=== PATIENT | male | born 1945 | race Caucasian/White ===

== ENCOUNTER → 2016-09-28 | Outpatient (CLI) | payer MEDICARE ==
[2016-01-07 10:15] VITALS: BP 103/61
[~2016-09-28] MED LIST: ASPI-482 PO; ATOR20TA58 PO; FURO40TA4 PO; LEVO75TA5 PO; LISI-338 PO; METO25TA4 PO; NAPR500T3 PO; NITR0.4T6 SL; OXYC-323 PO; POTA20TA4 PO; ZOLP5TAB PO
--- NOTE | 2016-09-30 10:28 | CARD ---
APPROVED REPORT EXAM: Two-dimensional and M-mode echocardiogram with Doppler and color Doppler. Other Information Quality : GoodHR: 76bpm Rhythm : NSR INDICATION Cardiac Disease: CAD Aortic stenosis Surgery/Intervention Status/Post Aortic Valve Replacement: Bioprosthetic RISK FACTORS Hypertension Family History Smoking Ex smoker 2D DIMENSIONS RVDd2.4 (2.9-3.5cm)Left Atrium(2D)4.9 (1.6-4.0cm) IVSd1.1 (0.7-1.1cm)Aortic Root(2D)3.1 (2.0-3.7cm) LVDd5.6 (3.9-5.9cm)LVOT Diameter2.2 (1.8-2.4cm) PWd1.3 (0.7-1.1cm)LVDs3.8 (2.5-4.0cm) FS (%) 33.0 %SV93.6 ml LVEF(%)60.9 (>50%) Aortic Valve AoV Peak Shiv.213.6cm/sAoV VTI45.8cm AO Peak GR.18.3mmHgLVOT Peak Shiv.145.2cm/s AO Mean GR.10mmHgAVA (VMAX)2.55cm2 Mitral Valve MV E Lqnpqafu05.0cm/sMV E Peak Gr.5mmHg MV DECEL [id number] A Mdsggcnw481.3cm/s MV E Mean Gr.2mmHgE/A Ratio0.8 MV A Wzbxhppf182xk Pulmonary Valve PV Peak Wkrjkraz965.6cm/s Tricuspid Valve TR P. Quhwjdnk770wp/sTR Peak Gr.24mmHg Pulmonary Vein S1 Gplwqelh10.8cm/sD2 Bravimru20.2cm/s PVa rtcholdn25jmba LEFT VENTRICLE The left ventricle is normal size. There is mild concentric left ventricular hypertrophy. The left ve ntricular systolic function is normal and the ejection fraction is within normal range.The Ejection F raction is 55-60%. There is normal LV segmental wall motion. Transmitral Doppler flow pattern is Grad e I-abnormal relaxation pattern. RIGHT VENTRICLE The right ventricle is normal size. There is normal right ventricular wall thickness. The right ventr icular systolic function is normal. A pacemaker/ICD lead is noted in the right ventricle. ATRIA The left atrium size is normal. The right atrium size is normal. The interatrial septum is intact wit h no evidence for an atrial septal defect or patent foramen ovale as noted on 2-D or Doppler imaging. AORTIC VALVE Doppler and Color Flow revealed mild aortic regurgitation. There is no significant aortic valvular st enosis. There is a bioprosthetic aortic valve prosthesis. Thevalve appears well seated. Bioprosthesis leaflets are thin and move normally and there is mild regurgitation. MITRAL VALVE Mitral annular calcification is mild. The mitral valve leaflets are thickened. There is no evidence o f mitral valve prolapse. There is no mitral valve stenosis. Doppler and Color Flow revealed mild mitr al regurgitation. TRICUSPID VALVE Doppler and Color Flow revealed mild tricuspid regurgitation. The pulmonary artery systolic pressure is estimated at 29 mmHg. There is no pulmonary hypertension. PULMONIC VALVE Doppler and Color Flow revealed no pulmonic valvular regurgitation. There is no pulmonic valvular duy nosis. GREAT VESSELS The aortic root is normal in size. The ascending aorta is normal in size. The IVC is normal in size a nd collapses >50% with inspiration. PERICARDIAL EFFUSION There is no evidence of significant pericardial effusion. Critical Notification Critical Value: No <Conclusion> The left ventricular systolic function is normal and the ejection fraction is within normal range.The Ejection Fraction is 55-60%. There is normal LV segmental wall motion. A pacemaker/ICD lead is noted in the right ventricle. There is a bioprosthetic aortic valve prosthesis. Thevalve appears well seated. Bioprosthesis leaflet s are thin and move normally and there is mild regurgitation.
== END | disposition home or self-care (01) ==
LOC: ECHO 07:36
PROVIDERS: ATTEND Internal Medicine Cardiovascular Disease
DX: I25.10 Atherosclerotic heart disease of native coronary artery without angina pectoris (principal)
CPT/HCPCS: 93306

== ENCOUNTER → 2018-03-01 | Outpatient (CLI) | payer MEDICARE ==
[2016-01-07 10:15] VITALS: BP 103/61
[~2018-03-01] MED LIST changes: +NAPR-514 PO; -NAPR500T3 PO; +NITR0.4T22 SL; -NITR0.4T6 SL; +PERFLUTREN PROTEIN-A MICROSPHR 0.22 MG/ML 3 ML VIAL. IV ONE
[2018-03-01] MEDS: PERFLUTREN PROTEIN-A MICROSPHR 0.22 MG/ML 3 ML VIAL. IV PRN ×2 (09:58→09:59)
--- NOTE | 2018-03-01 10:28 | CARD ---
MR#: [id number] Date of Study: 03/01/2018 Ordering Physician: JAMARCUS SANDERS, Referring Physician: JAMARCUS SANDERS, Tech: JULIANA Zepeda APPROVED REPORT EXAM: Two-dimensional and M-mode echocardiogram with Doppler, color Doppler with contrast. Other Information Quality : AverageHR: 68bpm Technically limited study due to body habitus and CABG. INDICATION cabg Surgery/Intervention Status/Post Aortic Valve Replacement: Bioprosthetic Pacemaker: CABD DIMENSIONS RVDd3.9 (2.9-3.5cm)Left Atrium(2D)4.4 (1.6-4.0cm) IVSd1.9 (0.7-1.1cm)Aortic Root(2D)4.1 (2.0-3.7cm) LVDd4.7 (3.9-5.9cm)LVOT Diameter2.6 (1.8-2.4cm) PWd1.4 (0.7-1.1cm)IVSs1.8 (0.8-1.2cm) LVDs3.3 (2.5-4.0cm)FS (%) 30.7 % PWs2.4 (0.8-1.2cm)SV60.2 ml LVEF(%)58.3 (>50%) M-Mode DIMENSIONS IVSd1.44 (0.7-1.1cm)LVDd6.44 (4.0-5.6cm) PWd1.32 (0.7-1.1cm)IVSs1.76 cm FS (%) 30 %LVDs4.48 (2.0-3.8cm) PWs1.80 cmLVEF(%)57 (>50%) Aortic Valve AoV Peak Shiv.131.2cm/sAoV VTI29.9cm AO Peak GR.6.9mmHgLVOT Peak Shiv.61.4cm/s LVOT VTI 15.49cmAO Mean GR.4mmHg RUPA (VMAX)1.32zw7WFQ (VTI)2.71cm2 Mitral Valve MV E Xygjayfl79.5cm/sMV E Peak Gr.48mmHg MV DECEL [id number] A Jvsnhfkf42.8cm/s MV OMC38ckI/A Ratio0.9 MVA (PHT)3.03cm2 TDI E/Lateral E'10.1E/Medial E'12.5 Pulmonary Valve PV Peak Mlwggdve91.6cm/sPV Peak Grad.3mmHg RVOT VTI17.6cm Tricuspid Valve TR P. Kkfgtiai965ko/sRAP AEOAQRDQ9liNy TR Peak Gr.27eoJlQGLF80aqXh LEFT VENTRICLE The left ventricle is normal size. There is moderate concentric left ventricular hypertrophy. The lef t ventricular systolic function is normal and the ejection fraction is within normal range. EF 55% Th ere is grossly normal LV segmental wall motion. Tissue Doppler imaging reveals mild left ventricular diastolic dysfunction. RIGHT VENTRICLE The right ventricle is normal size. The right ventricular systolic function is normal. There is a pac emaker lead in the right ventricle. ATRIA The left atrium is mildly dilated. The right atrium is mildly dilated. A pacemaker is seen in the rig ht atrium consistent with history. The interatrial septum is intact with no evidence for an atrial se ptal defect or patent foramen ovale as noted on 2-D or Doppler imaging. AORTIC VALVE Doppler and Color Flow revealed trace aortic regurgitation. There is no significant aortic valvular s tenosis. There is no aortic valvular vegetation. There is a bioprosthetic aortic valve prosthesis. Bi oprosthesis leaflets are not well visualized. MITRAL VALVE The mitral valve is mildly thickened. There is no evidence of mitral valve prolapse. There is no mitr al valve stenosis. Doppler and Color-flow revealed trace mitral regurgitation. TRICUSPID VALVE The tricuspid valve leaflets are thickened , but open well. Doppler and Color Flow revealed mild tric uspid regurgitation. The pulmonary artery systolic pressure is estimated at less than 30 mmHg. There is no pulmonary hypertension. There is no tricuspid valve prolapse or vegetation. There is no tricusp id valve stenosis. PULMONIC VALVE The pulmonic valve is not well visualized. Doppler and Color Flow revealed no pulmonic valvular regur gitation. There is no pulmonic valvular stenosis. GREAT VESSELS The aortic root is mildly enlarged. The IVC was not well visualized. PERICARDIAL EFFUSION There is no pleural effusion. There is no evidence of significant pericardial effusion. Critical Notification Critical Value: No <Conclusion> The left ventricular systolic function is normal and the ejection fraction is within normal range. EF 55% There is grossly normal LV segmental wall motion. There is a pacemaker lead in the right ventricle. There is a bioprosthetic aortic valve prosthesis. Bioprosthesis leaflets are not well visualized. There is no significant aortic valvular stenosis. Signed by : Jamarcus Sanders, Electronically Approved : 03/01/2018 10:26:58
== END | disposition home or self-care (01) ==
LOC: ECHO 08:18
PROVIDERS: ATTEND Internal Medicine Cardiovascular Disease
DX: I71.9 Aortic aneurysm of unspecified site, without rupture (principal)
CPT/HCPCS: C8929; Q9956

== ENCOUNTER → 2018-03-09 | Outpatient (CLI) | payer MEDICARE ==
[2016-01-07 10:15] VITALS: BP 103/61
[~2018-03-09] MED LIST changes: -PERFLUTREN PROTEIN-A MICROSPHR 0.22 MG/ML 3 ML VIAL. IV ONE
[2018-03-09] MEDS: IOHEXOL 300 MG/ML 100ML VIAL. IV ONE (07:30)
[2018-03-09 07:40] LABS: CREATININE 1.4 mg/dL (0.7-1.3); GFR 50.1; POTASSIUM 4.3 mmol/L (3.5-5.1)
[2018-03-09 07:43] LABS: CHOLESTEROL/HDL RATIO 3.3
--- NOTE | 2018-03-09 10:37 | RAD ---
CLINICAL HISTORY: HX OF AORTIC ANEURYSM COMPARISON: 10/12/2015 TECHNIQUE: CT angiogram aorta of the chest following the administration of intravenous contrast. Axial, coronal and sagittal reformatted images were generated. ---PQRS compliance statement - One or more of the following individualized dose reduction techniques were utilized for this study: 1. Automated exposure control 2. Adjustment of the mA and/or kV according to patient size 3. Use of iterative reconstruction technique--- FINDINGS: CHEST: CT angiogram: Thoracic and visualized abdominal aorta is normal in caliber with no aneurysm or dissection. Changes of aortic valvular replacement are seen. At the level of the aortic root, the aorta measures approximately 4.2 cm in diameter. Changes of ascending aortic graft are seen. Ascending aorta: 3.2 cm (series 3 image 58) previously 5.6 cm Aortic arch: 2.7 cm (series 3 image 42) previously 2.8 cm. Descending aorta at the level of the left pulmonary artery: 2.7 cm (series 3 image 56) previously also 2.7 cm. Abdominal aorta: Stable at 2.6 cm just beyond the diaphragm Three-vessel aortic arch, widely patent. Origins of the vertebral arteries are patent although mildly tortuous course of the left vertebral artery. CT chest: Heart is top normal in size. No pericardial effusion. Left chest cardiac generator pack is partially profiled. No mediastinal or hilar lymphadenopathy. No axillary lymphadenopathy. Dependent opacities bilaterally likely atelectasis or scarring. No lobar consolidation. No suspicious lung nodule or mass is identified. Mild emphysematous changes are seen bilaterally. No pleural effusion or pneumothorax. Visualized Upper abdomen: Dependent opacities within the gallbladder likely layering gallstones. Upper abdomen is otherwise unremarkable. Bones: Multilevel degenerative changes of the spine are seen. No definite aggressive osseous lesion. IMPRESSION: Postoperative changes of aortic graft, now with normal appearance of the ascending aorta. Electronically signed by: Chriss Cronin MD (03/09/2018 10:34 AM) [id number]
== END | disposition home or self-care (01) ==
LOC: CT 07:16
PROVIDERS: ATTEND Internal Medicine Cardiovascular Disease
DX: I71.9 Aortic aneurysm of unspecified site, without rupture (principal); I10 Essential (primary) hypertension; E11.9 Type 2 diabetes mellitus without complications; E78.5 Hyperlipidemia, unspecified; E78.00 Pure hypercholesterolemia, unspecified; E87.5 Hyperkalemia; E03.9 Hypothyroidism, unspecified; Z98.890 Other specified postprocedural states; Z86.79 Personal history of other diseases of the circulatory system; Z95.810 Presence of automatic (implantable) cardiac defibrillator; Z87.891 Personal history of nicotine dependence; Z82.49 Family history of ischemic heart disease and other diseases of the circulatory system; Z86.2 Personal history of diseases of the blood and blood-forming organs and certain disorders involving the immune mechanism
CPT/HCPCS: 36415; 71275; 80048; 80061; Q9967

== ENCOUNTER → 2019-10-04 | Outpatient (CLI) | payer MEDICARE ==
[2016-01-07 10:15] VITALS: BP 103/61
[~2019-10-04] MED LIST changes: -OXYC-323 PO; +OXYC1TAB15 PO
--- NOTE | 2019-10-04 12:59 | CARD ---
MR#: [id number] Date of Study: 10/04/2019 Ordering Physician: JAMARCUS SANDERS, Referring Physician: JAMARCUS SANDERS, Tech: Lore Villasenor RDCS APPROVED REPORT EXAM: Two-dimensional and M-mode echocardiogram with Doppler and color Doppler. Other Information Quality : Fair INDICATION Aortic Aneurysm Surgery/Intervention Status/Post Aortic Valve Replacement: Bioprosthetic Type: Bovine Date: 2015 ICD/Pacemaker: Date: 2015 Aortic Aneurysm: Date: 2015 Thoracic CABG: Date: 2015 2D DIMENSIONS RVDd3.4 (2.9-3.5cm)Left Atrium(2D)4.6 (1.6-4.0cm) IVSd1.3 (0.7-1.1cm)Aortic Root(2D)2.8 (2.0-3.7cm) LVDd5.1 (3.9-5.9cm)LVOT Diameter2.1 (1.8-2.4cm) PWd1.2 (0.7-1.1cm)LVDs3.0 (2.5-4.0cm) FS (%) 30.0 %SV89.3 ml LVEF(%)60.0 (>50%) Aortic Valve AoV Peak Shiv.164.4cm/sAoV VTI32.1cm AO Peak GR.10.8mmHgLVOT Peak Shiv.87.3cm/s LVOT VTI 19.50cmAO Mean GR.6mmHg RUPA (VMAX)1.29ms9YOX (VTI)2.07cm2 Mitral Valve MV E Smzvcvam81.7cm/sMV DECEL [id number] MV A Qfbbbfpg214.0cm/sMV PZS64hx E/A Ratio0.7MVA (PHT)3.02cm2 TDI E/Lateral E'11.6E/Medial E'13.4 Tricuspid Valve TR P. Obefnzya180he/sRAP EHGELWAK0tmQe TR Peak Gr.30agOsKTDL02erFc Pulmonary Vein S1 Qwfuvxco45.6cm/sD2 Zqrocnpz55.9cm/s LEFT VENTRICLE The left ventricle is normal size. There is mild concentric left ventricular hypertrophy. The left ve ntricular systolic function is normal and the ejection fraction is within normal range. The Ejection Fraction is 55-60%. There is normal LV segmental wall motion. Transmitral Doppler flow pattern is Gra de I-abnormal relaxation pattern. RIGHT VENTRICLE The right ventricle is normal size. The right ventricular systolic function is normal. There is a pac emaker lead in the right ventricle. ATRIA The left atrium is mildly dilated. The right atrium is mildly dilated. A pacemaker is seen in the rig ht atrium consistent with history. The interatrial septum is intact with no evidence for an atrial se ptal defect or patent foramen ovale as noted on 2-D or Doppler imaging. AORTIC VALVE Doppler and Color Flow revealed no significant aortic regurgitation. Calculated aortic valve area is 2.14 cm2 with maximum pressure gradient of 12 mmHg and mean pressure gradient of 7 mmHg. There is a b ioprosthetic Bovine aortic valve prosthesis. Bioprosthesis leaflets are not well visualized. MITRAL VALVE The mitral valve is calcified but opens well. Mitral annular calcification is mild. There is no evid ence of mitral valve prolapse. There is no mitral valve stenosis. Doppler and Color-flow revealed tra ce mitral regurgitation. TRICUSPID VALVE The tricuspid valve is normal in structure and function. Doppler and Color Flow revealed mild tricusp id regurgitation. There is mild pulmonary hypertension. The PA pressure was estimated at 31 mmHg. The re is no tricuspid valve stenosis. PULMONIC VALVE The pulmonic valve is not well visualized. Doppler and Color Flow revealed no pulmonic valvular regur gitation. There is no pulmonic valvular stenosis. GREAT VESSELS The aortic root is normal in size. The ascending aorta is mildly dilated at 3.5 cm. The IVC is normal in size and collapses >50% with inspiration. PERICARDIAL EFFUSION There is no evidence of significant pericardial effusion. Critical Notification Critical Value: No <Conclusion> The left ventricular systolic function is normal and the ejection fraction is within normal range. Th e Ejection Fraction is 55-60%. There is normal LV segmental wall motion. There is a pacemaker lead in the right ventricle. There is a bioprosthetic Bovine aortic valve prosthesis. Bioprosthesis leaflets are not well visualiz ed. Calculated aortic valve area is 2.14 cm2 with maximum pressure gradient of 12 mmHg and mean pressure gradient of 7 mmHg. The ascending aorta is mildly dilated at 3.5 cm. Signed by : Jamarcus Katrapati, Electronically Approved : 10/04/2019 12:59:06
== END | disposition home or self-care (01) ==
LOC: ECHO 07:42
PROVIDERS: ATTEND Internal Medicine Cardiovascular Disease
DX: I08.1 Rheumatic disorders of both mitral and tricuspid valves (principal); I77.810 Thoracic aortic ectasia; I27.20 Pulmonary hypertension, unspecified; Z95.4 Presence of other heart-valve replacement; Z95.810 Presence of automatic (implantable) cardiac defibrillator
CPT/HCPCS: 93306

== ENCOUNTER 2020-03-11 20:59 | Emergency (ER) | payer MEDICARE ==
[~2020-03-11] VITALS: Ht 188 cm; Wt 122.7 kg
--- NOTE | 2020-03-11 23:57 | PHYS DOC ---
Past Medical History Past Medical History: CAD, High Cholesterol, Heart Disease, Hypertension Additional Past Medical Histor: BYPASS X 4 (WALEIDANIA M NURSE EXAMINER) Past Surgical History: Other Additional Past Surgical Histo: HEART BYPASS X 4. AORTIC ANERYSM (JAIME ECHEVARRIAAlejandra Prakash NURSE EXAMINER) Smoking Status: Never Smoker Alcohol Use: Occasionally (WALEIDANIA M NURSE EXAMINER) General Adult EDM: Chief Complaint: HIP PAIN HPI: HPI: Patient is a 74 year old male who presents with patient states he has had left lower back pain that is sharp and shooting and goes down his buttock and into his left upper leg. He states he does have some tingling in that anterior thigh. He denies any numbness. States he has been to the chiropractor x2 without relief. He states that his primary care doctor put him on prednisone and ibuprofen and is not helping. Patient has tenderness with palpation to the left lower back. There is no bruising denies any injury. He is able to put full pressure and stand on both extremities fully. He is able to sit and bend at all joints fully. No joint deformity. No joint swelling or redness. Patient is ambulatory with a slow steady gait. No unilateral extremity swelling. Patient rates his pain a 10 out of 10. He states that he is unable to lay flat because the pain is too great. Patient has a history of hypertension, high cholesterol, heart disease, bypass x4, aortic aneurysm and a defibrillator placement. (JAIME ECHEVARRIAAlejandra Prakash NURSE EXAMINER) Review of Systems: Review of Systems: Constitutional: Denies fever or chills. [] Eyes: Denies change in visual acuity. [] HENT: Denies nasal congestion or sore throat. [] Respiratory: Denies cough or shortness of breath. [] Cardiovascular: Denies chest pain or edema. [] GI: Denies abdominal pain, nausea, vomiting, bloody stools or diarrhea. [] : Denies dysuria. [] Musculoskeletal: Left low back back pain sharp shooting into left hip joint and down left upper leg. [] Integument: Denies rash. [] Neurologic: Denies headache, focal weakness or sensory changes. Tingling to anterior thigh. [] Endocrine: Denies polyuria or polydipsia. [] Lymphatic: Denies swollen glands. [] Psychiatric: Denies depression or anxiety. [] (IDANIA ECHEVARRIA APRN) Heart Score: Risk Factors: Risk Factors: DM, Current or recent (<one month) smoker, HTN, HLP, family history of CAD, obesity. Risk Scores: Score 0 - 3: 2.5% MACE over next 6 weeks - Discharge Home Score 4 - 6: 20.3% MACE over next 6 weeks - Admit for Clinical Observation Score 7 - 10: 72.7% MACE over next 6 weeks - Early Invasive Strategies (IDANIA ECHEVARRIA APRN) Current Medications: Current Medications Medications (Trade) Dose Ordered Sig/Geraldo Start Time Stop Time Status Last Admin Dose Admin Fentanyl Citrate (Fentanyl 2ml Vial) 50 mcg 1X ONCE 03/12/20 00:00 03/12/20 00:01 UNV Orphenadrine Citrate (Norflex) 60 mg 1X ONCE 03/12/20 00:00 03/12/20 00:01 UNV (IDANIA ECHEVARRIA APRN) Allergies: Allergies: Allergies Coded Allergies Type Severity Reaction Last Updated Verified amiodarone Adverse Reaction Intermediate V TACH 01/06/16 Yes morphine Adverse Reaction Intermediate dropped heart rate 01/06/16 Yes (IDANIA ECHEVARRIA APRN) Physical Exam: PE: Constitutional: Well developed, well nourished, no acute distress, non-toxic appearance. [] HENT: Normocephalic, atraumatic, bilateral external ears normal, oropharynx moist, no oral exudates, nose normal. [] Eyes: PERRLA, EOMI, conjunctiva normal, no discharge. [] Neck: Normal range of motion, no tenderness, supple, no stridor. [] Cardiovascular:Heart rate regular rhythm, no murmur [] Lungs & Thorax: Bilateral breath sounds clear to auscultation [] Abdomen: Bowel sounds normal, soft, no tenderness, no masses, no pulsatile masses. [] Skin: Warm, dry, no erythema, no rash. [] Back: Left low back tenderness, no CVA tenderness. [] Extremities: No tenderness, no cyanosis, no clubbing, ROM intact, no edema. [] Neurologic: Alert and oriented X 3, normal motor function, normal sensory function, no focal deficits noted. [] Psychologic: Affect normal, judgement normal, mood normal. [] (IDANIA ECHEVARRIA APRN) Current Patient Data: Vital Signs: Vital Signs Date Time Temp Pulse Resp B/P (MAP) Pulse Ox O2 Delivery O2 Flow Rate FiO2 03/11/20 22:33 97.7 87 18 149/80 (103) Room Air 95.0 97.7 (IDANIA ECHEVARRIA APRN) EKG: EKG: [] (IDANIA ECHEVARRIA APRN) Radiology/Procedures: Radiology/Procedures: [] Impression: [facility] [address] [place] [address] IMAGING REPORT Signed PATIENT: SUNG LEECCOUNT: [id number] : 1945 LOCATION: ER AGE: 74 SEX: M EXAM STATUS: REG ER ORD. PHYSICIAN: IDANIA ECHEVARRIA APRN REASON: SEVERE LOW BACK PAIN S/P CHIROPRACTIC VISIT PROCEDURE: CT LUMBAR SPINE WO CONTRAST STUDY: 1. CT lumbar spine without contrast 2. CT pelvis without contrast INDICATION: Severe low back pain. Left hip pain. Unable to bear weight. COMPARISON: 10/03/2015 TECHNIQUE: CT imaging was performed of the lumbar spine and pelvis without the use of contrast. Coronal and sagittal reformats were obtained. One or more of the following individualized dose reduction techniques were utilized for this examination: 1. Automated exposure control 2. Adjustment of the mA and/or kV according to patient size 3. Use of iterative reconstruction technique. FINDINGS: Lumbar spine: Vertebral body height and alignment is maintained. Bulky flowing as well as discontinuous paravertebral osteophytes. Disc space narrowing at L5-S1 which is relatively mild and disc mineralization. Straightening of lumbar lordosis. No acute fracture or aggressive process seen to involve the posterior elements. Scattered facet degeneration. Central canal stenosis is greatest at L3-L4 appearing mild noting limited assessment by noncontrast CT technique. No severe osseous encroachment on the neural foramina. Infrarenal aortic aneurysm extending to the bifurcation measuring up to 4.5 cm in transverse dimension. In 2016 transverse dimension measured up to 3.8 cm Aneurysmal dilatation of the left common iliac artery measuring 2.3 cm transverse. Mild aneurysmal dilatation of the right common iliac artery measuring 2.1 cm transverse. Luminal dimensions of the common iliac arteries have slightly increased from 2016 as well. Pelvis: No CT evidence for a sacral insufficiency fracture. No displaced fracture seen at either hip. Hip alignment is maintained. Arthrosis of both hips but slightly greater on the right. No evidence for large hip joint effusion. No soft tissue inflammatory changes that would suggest acute musculotendinous injury. Prostatomegaly and hypertrophy of the median lobe. IMPRESSION: Lumbar spine: 1. No acute fracture or traumatic malalignment. 2. Scattered degenerative/chronic findings with central canal stenosis greatest at L3-L4 but appearing mild to moderate. No severe osseous encroachment on the neural foramina. 3. Infrarenal abdominal aortic aneurysm with a maximum luminal dimension of 4.5 cm. This compares to 3.8 cm in 2016. Mild aneurysmal dilatation of the left more so than right common iliac arteries slightly increased in size from 2016. Pelvis: 1. No acute fracture seen at either hip. No evidence for a sacral sufficiency fracture. No CT manifestations of acute soft tissue injury. 2. Prostatomegaly. Electronically signed by: BLAYNE LOBATO MD (03/12/2020 1:04 AM) [id number] DICTATED and SIGNED BY: BLAYNE LOBATO MD DATE: 03/12/20103 (IDANIA ECHEVARRIA APRN) Radiology/Procedures: [facility] [address] [place] [address] IMAGING REPORT Signed [facility]: [id number] : 1945 LOCATION: ER AGE: 74 SEX: M EXAM STATUS: REG ER ORD. PHYSICIAN: IADNIA ECHEVARRIA APRN REASON: SEVERE LOW BACK PAIN S/P CHIROPRACTIC VISIT PROCEDURE: CT LUMBAR SPINE WO CONTRAST STUDY: 1. CT lumbar spine without contrast 2. CT pelvis without contrast INDICATION: Severe low back pain. Left hip pain. Unable to bear weight. COMPARISON: 10/03/2015 TECHNIQUE: CT imaging was performed of the lumbar spine and pelvis without the use of contrast. Coronal and sagittal reformats were obtained. One or more of the following individualized dose reduction techniques were utilized for this examination: 1. Automated exposure control 2. Adjustment of the mA and/or kV according to patient size 3. Use of iterative reconstruction technique. FINDINGS: Lumbar spine: Vertebral body height and alignment is maintained. Bulky flowing as well as discontinuous paravertebral osteophytes. Disc space narrowing at L5-S1 which is relatively mild and disc mineralization. Straightening of lumbar lordosis. No acute fracture or aggressive process seen to involve the posterior elements. Scattered facet degeneration. Central canal stenosis is greatest at L3-L4 appearing mild noting limited assessment by noncontrast CT technique. No severe osseous encroachment on the neural foramina. Infrarenal aortic aneurysm extending to the bifurcation measuring up to 4.5 cm in transverse dimension. In 2016 transverse dimension measured up to 3.8 cm Aneurysmal dilatation of the left common iliac artery measuring 2.3 cm transverse. Mild aneurysmal dilatation of the right common iliac artery measuring 2.1 cm transverse. Luminal dimensions of the common iliac arteries have slightly increased from 2016 as well. Pelvis: No CT evidence for a sacral insufficiency fracture. No displaced fracture seen at either hip. Hip alignment is maintained. Arthrosis of both hips but slightly greater on the right. No evidence for large hip joint effusion. No soft tissue inflammatory changes that would suggest acute musculotendinous injury. Prostatomegaly and hypertrophy of the median lobe. IMPRESSION: Lumbar spine: 1. No acute fracture or traumatic malalignment. 2. Scattered degenerative/chronic findings with central canal stenosis greatest at L3-L4 but appearing mild to moderate. No severe osseous encroachment on the neural foramina. 3. Infrarenal abdominal aortic aneurysm with a maximum luminal dimension of 4.5 cm. This compares to 3.8 cm in 2016. Mild aneurysmal dilatation of the left more so than right common iliac arteries slightly increased in size from 2016. Pelvis: 1. No acute fracture seen at either hip. No evidence for a sacral sufficiency fracture. No CT manifestations of acute soft tissue injury. 2. Prostatomegaly. Electronically signed by: BLAYNE LOBATO MD (03/12/2020 1:04 AM) [id number] DICTATED and SIGNED BY: BLAYNE LOBATO MD DATE: 03/12/20 0104 (NASIR CLARKE DO) Course & Med Decision Making: Course & Med Decision Making Pertinent Labs and Imaging studies reviewed. (See chart for details) See HPI. Pedal pulse strong and present. Skin pink warm and dry. No saddle paresthesia. Patient denies numbness or tingling, coolness of extremity, loss of bowel bladder, saddle paresthesia, chest pain, shortness of air, fever, dysuria, abdominal pain, nausea, vomiting, diarrhea. Patient has an incidental finding of an increased aortic aneurysm to 4.5. It has increased from 2016. Patient is educated that he needs to follow-up with his shoe cementer immediately. Me and Dr. Clarke have both spoken to the patient concerning this. CT lumbar spine shows stenosis and arthritis. Patient will be given pain medication he is to follow-up with his primary care physician. [] (IDANIA ECHEVARRIA APRN) Dragon Disclaimer: Dragon Disclaimer: This electronic medical record was generated, in whole or in part, using a voice recognition dictation system. (IDANIA ECHEVARRIA APRN) Dragsue Disclaimer: 0115 patient seen by me and examined. CT scan lumbar and pelvic was stable from a musculoskeletal standpoint. There is grossly degenerative changes to his lumbar spine but no significant disc protrusion, fracture or dislocation. However he has an incidental finding of a 4.5 cm abdominal aortic aneurysm. This has increased in size from 2016 when it was 3.8 cm. Patient will call and see his Greeting Card Maker right away regarding this finding. This aneurysm has previously been documented in his chart. I feel that this is incidental to his current findings. No indication of rupture etc. at this time (NASIR CLARKE DO) Departure Departure Impression: Primary Impression: Back pain Qualified Codes: M54.42 - Lumbago with sciatica, left side Additional Impressions: Sciatica Qualified Codes: M54.30 - Sciatica, unspecified side Abdominal aortic aneurysm (AAA) 3.0 cm to 5.5 cm in diameter in male Disposition: 01 HOME, SELF-CARE Condition: STABLE Referrals: ADONIS ROBERTS MD (PCP) JAMARCUS SANDERS MD Patient Instructions: Abdominal Aortic Aneurysm, Back Pain, Adult, Lhu[place]-en-Ypoy, Sciatica with Rehab-SportsMed Additional Instructions: Follow-up with your primary care physician soon as possible. Continue taking all your medications as prescribed. Follow-up with your shoe cementer concerning the aortic aneurysm. Scripts Hydrocodone/Apap 5-325 (NORCO 5-325 TABLET) 1 Each Tablet 1 TAB PO PRN Q6HRS PRN for PAIN, #8 TAB 0 Refills Prov: IDANIA ECHEVARRIA APRN 03/12/20 Justicifation of Admission Dx: Justifications for Admission: Justification of Admission Dx: N/A (IDANIA ECHEVARRIA APRN) Justification of Admission Dx: N/A (NASIR CLARKE DO) IDANIA ECHEVARRIA APRN Mar 11, 2020 23:57 NASIR CLARKE DO Mar 12, 2020 01:10
[2020-03-12] MEDS ORDERED: fentaNYL PF VIAL 100 MCG/2 ML VIAL IVP ONE (00:30)
[2020-03-12] MEDS ORDERED: ORPHENADRINE CITRATE 60 MG/2 ML VIAL. IM ONE (00:30)
[2020-03-12 00:48] LABS: BASO % 0 % (0-3); EOS % 0 % (0-3); HEMATOCRIT 45.3 % (39.0-53.0); HEMOGLOBIN 15.5 g/dL (13.0-17.5); LYMPH # 0.6 x10^3/uL (1.0-4.8); LYMPH % 6 % (24-48); MEAN CORPUSCULAR HEMOGLOBIN 30 pg (25-35); MEAN CORPUSCULAR HGB CONC 34 g/dL (31-37); MEAN CORPUSCULAR VOLUME 87 fL (79-100); MONO # 1.2 x10^3/uL (0.0-1.1); MONO % 11 % (0-9); NEUT % 83 % (31-73); PLATELET COUNT 230 x10^3/uL (140-400); RED CELL DISTRIBUTION WIDTH 14.8 % (11.5-14.5); WHITE BLOOD COUNT 10.9 x10^3/uL (4.0-11.0)
[2020-03-12 01:03] VITALS: BP 123/76
[2020-03-12 01:05] LABS: CREATININE 1.5 mg/dL (0.7-1.3); POTASSIUM 4.1 mmol/L (3.5-5.1)
--- NOTE | 2020-03-12 01:07 | RAD ---
STUDY: 1. CT lumbar spine without contrast 2. CT pelvis without contrast INDICATION: Severe low back pain. Left hip pain. Unable to bear weight. COMPARISON: 10/03/2015 TECHNIQUE: CT imaging was performed of the lumbar spine and pelvis without the use of contrast. Coronal and sagittal reformats were obtained. One or more of the following individualized dose reduction techniques were utilized for this examination: 1. Automated exposure control 2. Adjustment of the mA and/or kV according to patient size 3. Use of iterative reconstruction technique. FINDINGS: Lumbar spine: Vertebral body height and alignment is maintained. Bulky flowing as well as discontinuous paravertebral osteophytes. Disc space narrowing at L5-S1 which is relatively mild and disc mineralization. Straightening of lumbar lordosis. No acute fracture or aggressive process seen to involve the posterior elements. Scattered facet degeneration. Central canal stenosis is greatest at L3-L4 appearing mild noting limited assessment by noncontrast CT technique. No severe osseous encroachment on the neural foramina. Infrarenal aortic aneurysm extending to the bifurcation measuring up to 4.5 cm in transverse dimension. In 2016 transverse dimension measured up to 3.8 cm Aneurysmal dilatation of the left common iliac artery measuring 2.3 cm transverse. Mild aneurysmal dilatation of the right common iliac artery measuring 2.1 cm transverse. Luminal dimensions of the common iliac arteries have slightly increased from 2016 as well. Pelvis: No CT evidence for a sacral insufficiency fracture. No displaced fracture seen at either hip. Hip alignment is maintained. Arthrosis of both hips but slightly greater on the right. No evidence for large hip joint effusion. No soft tissue inflammatory changes that would suggest acute musculotendinous injury. Prostatomegaly and hypertrophy of the median lobe. IMPRESSION: Lumbar spine: 1. No acute fracture or traumatic malalignment. 2. Scattered degenerative/chronic findings with central canal stenosis greatest at L3-L4 but appearing mild to moderate. No severe osseous encroachment on the neural foramina. 3. Infrarenal abdominal aortic aneurysm with a maximum luminal dimension of 4.5 cm. This compares to 3.8 cm in 2016. Mild aneurysmal dilatation of the left more so than right common iliac arteries slightly increased in size from 2016. Pelvis: 1. No acute fracture seen at either hip. No evidence for a sacral sufficiency fracture. No CT manifestations of acute soft tissue injury. 2. Prostatomegaly. Electronically signed by: BLAYNE LOBATO MD (03/12/2020 1:04 AM) [id number]
[2020-03-12 01:10] LABS: ALBUMIN 4.2 g/dL (3.4-5.0); TOTAL BILIRUBIN 0.7 mg/dL (0.2-1.0); TOTAL PROTEIN 8.4 g/dL (6.4-8.2)
[2020-03-12] MEDS ORDERED: HYDR-3164 PO (01:19)
== END 2020-03-12 02:00 | disposition home or self-care (01) ==
LOC: ER 20:59
DX: M54.42 Lumbago with sciatica, left side (principal); I71.4 Abdominal aortic aneurysm, without rupture; I11.9 Hypertensive heart disease without heart failure; N40.0 Benign prostatic hyperplasia without lower urinary tract symptoms; I10 Essential (primary) hypertension; E78.00 Pure hypercholesterolemia, unspecified; I25.10 Atherosclerotic heart disease of native coronary artery without angina pectoris; Z95.1 Presence of aortocoronary bypass graft; Z95.810 Presence of automatic (implantable) cardiac defibrillator; Z88.5 Allergy status to narcotic agent; Z88.8 Allergy status to other drugs, medicaments and biological substances
CPT/HCPCS: 36415; 72131; 72192; 80053; 85025; 96372; 96374; 99285; J2360; J3010

== ENCOUNTER → 2020-03-19 | Outpatient (CLI) | payer MEDICARE ==
[2020-03-12 01:03] VITALS: BP 123/76
[~2020-03-19] MED LIST changes: +CONTRAST GIVEN. MC PRN; +HYDR-3164 PO; +IOHEXOL 350 MG/ML 100 ML VIAL. IV ONE
--- NOTE | 2020-03-19 13:23 | RAD ---
EXAM: CT Chest, Abdomen, and Pelvis with and without IV contrast INDICATION: Reason: AORTIC ANEURYSM / Spl. Instructions: omni 350 80ml / History: TECHNIQUE: Multi-detector row CT images were acquired from the thoracic inlet through the ischial tuberosities with and without the use of IV contrast. Arterial phase images were acquired postcontrast and 3-D views RT images were made of the thoracic and abdominal aorta. Sagittal and coronal images were acquired from the transaxial data. All CT scans performed at this facility utilize dose optimization techniques as appropriate to the exam, including the following: Automated exposure control and adjustment of the mA and/or KV according to patient size (this includes techniques or standardized protocols for targeted exams where dose is indication/reason for exam). IV CONTRAST: Administered ORAL CONTRAST: Not administered COMPARISON: CT angiogram chest of 03/09/2018, CT abdomen and pelvis without IV contrast 10/03/2015 FINDINGS: CHEST: CARDIOVASCULAR: Redemonstrated are surgical changes from an ascending aortic aneurysm repair, along with aortic valve replacement. The aortic root measures 4.3 cm (image 55 of series 4). Ascending thoracic aorta measures 3.7 cm (image 40 of series 4). Three-vessel arch measures 3.0 cm (image 27 of series 4). Proximal descending thoracic aorta measures 3.2 cm (image 30 series 4) Mid descending thoracic aorta measures 3.3 cm (image 55 of series 4) Distal descending thoracic aorta measures 3.0 cm (image 85 of series 4) Visualized pulmonary arteries are unremarkable. Mildly hypertrophic bronchial arteries are better appreciated on this exam compared with the prior study. Slight motion artifact degrades detail but there are surgical changes suggesting a COBB to LAD CABG. Normal heart size without pericardial effusion. Left chest dual-chamber AICD MEDIASTINUM & LEVON: No mass or adenopathy. No fluid collection. LUNGS: Apical predominant mild centrilobular emphysema. No lung nodules , masses or consolidation noted. PLEURAL SPACE: No pleural effusions or pneumothorax. OSSEOUS & SOFT TISSUE: Unremarkable ABDOMEN/PELVIS: LIVER: Unremarkable BILIARY SYSTEM: Gallbladder contains multiple small layering calcifications. No wall thickening or pericholecystic soft tissue stranding. Bile ducts are not dilated. PANCREAS: Unremarkable SPLEEN: Unremarkable ADRENALS: Unremarkable KIDNEYS & URETERS: Bilateral renal cortical undulation suggesting mild scarring in cortical thinning is present. No abnormal enhancement, radiopaque stones or hydronephrosis. No solid renal masses. BLADDER: Mild diffuse urinary bladder wall thickening. REPRODUCTIVE ORGANS: Enlarged prostate measuring 6.4 cm in diameter. GASTROINTESTINAL: The stomach, small bowel, and colon are unremarkable. The appendix is normal. MESENTERY/PERITONEUM/RETROPERITONEUM: Unremarkable VASCULAR: Abdominal aortic infrarenal aneurysm measuring 4.5 x 4.5 cm AP by transverse (image 130 of series 4) is present. This represents an increase in size from 3.8 x 3.6 cm at the comparable level in 2016 (image 53 of series 3 that exam). Patent celiac axis, SMA, JESSICA, and single bilateral renal arteries. Normal variation of the right renal artery arising adjacent to the SMA origin. Aneurysm measures 8.6 cm long and extends to the origin of the common iliac artery origins. Right common iliac artery measures 1.9 cm. Right external iliac artery measures 1.3 cm. Right common femoral artery measures 1.1 cm. Left common iliac artery measures 2.2 cm. Left external iliac artery measures 1.2 cm. Left common femoral artery measures 1.1 cm. LYMPH NODES: No adenopathy OSSEOUS & SOFT TISSUES: Unremarkable IMPRESSION: 1. Stable appearance to repair an ascending thoracic aortic aneurysm and aortic valve repair with no evidence of recurrent aneurysm or aortic dissection. Thoracic aorta now normal in caliber. 2. Infrarenal abdominal aortic aneurysm now measuring 4.5 x 4.5 cm, representing an increase from 3.8 x 3.6 cm slightly over 4 years ago. No evidence of leak or rupture. Electronically signed by: Conrado Roberts MD (03/19/2020 1:20 PM) [id number]
== END | disposition home or self-care (01) ==
LOC: CT 08:46
PROVIDERS: ATTEND Internal Medicine Cardiovascular Disease
DX: J43.2 Centrilobular emphysema (principal); I71.9 Aortic aneurysm of unspecified site, without rupture
CPT/HCPCS: 71275; 74174; Q9967

== ENCOUNTER → 2021-03-12 | Outpatient (CLI) | payer MEDICARE ==
[~2021-03-12] MED LIST changes: +IOHEXOL 300 MG/ML 100ML VIAL. IV ONE; -IOHEXOL 350 MG/ML 100 ML VIAL. IV ONE; -LISI-338 PO; +LISI-517 PO
[2021-03-12 12:56] LABS: CREATININE 1.3 mg/dL (0.7-1.3); GFR 54.1
--- NOTE | 2021-03-12 14:02 | RAD ---
EXAM: Pelvis and left hip, 3 views. HISTORY: Pain. COMPARISON: None. FINDINGS: A frontal view of the pelvis and frontal and frog-leg views left hip are obtained. There is no fracture, dislocation or subluxation. There are degenerative bridging left lateral endplate osteo phytes at the L4-L5 level. There is facet arthropathy involving the lower lumbar spine. IMPRESSION: No acute osseous finding. Electronically signed by: Reta Machado MD (03/12/2021 1:59 PM) [id number]
--- NOTE | 2021-03-12 14:28 | RAD ---
EXAM: Abdomen and pelvis CT with intravenous contrast. HISTORY: Hip pain. Fall. TECHNIQUE: Computed tomographic images of the abdomen and pelvis were obtained following the administ ration of intravenous contrast. Multiplanar reformatting was performed. *One or more of the following individualized dose reduction techniques were utilized for this examina tion: 1. Automated exposure control. 2. Adjustment of the mA and/or kV according to patient size. 3. Use of iterative reconstruction technique. COMPARISON: 03/12/2020. FINDINGS: Evaluation of the lower thorax demonstrates posterior dependent and basilar atelectasis. Th ere is cardiomegaly and evidence of prior median sternotomy and aortic valve replacement. There are c ardiac pacemaker defibrillator leads in the [id number]. No hepatic lesion is seen. There is cholelithiasis. No pancreatic lesion is seen. The spleen is rashel l in size. The adrenal glands are unremarkable. There is mild renal atrophy. There is no hydronephros is or suspicious renal lesion. There is deformation of the bladder base due to nodular enlargement of the prostate. There is no appendicitis. There is no bowel obstruction. There is colonic diverticulosis. There is no evidence of diverticulitis. There is aneurysmal dilatation of the infrarenal abdominal aorta to a ca liber of 4.5 cm. There is also aneurysmal dilatation of the left common iliac artery to a caliber of 2.1 cm and ectasia of the right common iliac artery. There is degenerative endplate remodeling and anterior predominant osteophytosis throughout the lower thoracic and lumbar spine. There are multiple endplate Schmorl's nodes. There is disc space narrowin g and facet arthropathy predominantly the lumbosacral junction. There is mild bilateral hip osteoarth ritis. There is stable dense calcification or a small amount of heterotopic ossification along the left pelv ic sidewall. There is no adjacent donor site to suggest an avulsion fracture in this location. There is a stable small amount of soft tissue stranding in this location. IMPRESSION: 1. No acute osseous finding. There is stable linear increased density due to calcification or ossific ation along the left pelvic sidewall surrounding fatty stranding. The year of stability favors scarri ng related to prior trauma or prior hernia surgery. 2. Colonic diverticulosis. 3. 4.5 cm abdominal aortic aneurysm, minimally increased compared to the prior exam. 4. Cholelithiasis. 5. Cardiomegaly. 6. Mild bilateral hip osteoarthritis and degenerative change throughout the thoracolumbar spine. Electronically signed by: Reta Machado MD (03/12/2021 2:25 PM) [id number]
== END ==
LOC: CT 12:20
PROVIDERS: ATTEND Family Medicine
DX: I51.7 Cardiomegaly (principal); K80.20 Calculus of gallbladder without cholecystitis without obstruction; K57.30 Diverticulosis of large intestine without perforation or abscess without bleeding; I71.4 Abdominal aortic aneurysm, without rupture; M16.0 Bilateral primary osteoarthritis of hip; M47.815 Spondylosis without myelopathy or radiculopathy, thoracolumbar region; J98.11 Atelectasis; I72.3 Aneurysm of iliac artery; M51.47 Schmorl's nodes, lumbosacral region; M48.07 Spinal stenosis, lumbosacral region; M48.8X7 Other specified spondylopathies, lumbosacral region; M25.78 Osteophyte, vertebrae
CPT/HCPCS: 36415; 73502; 74177; 82565; 84520; Q9967

== ENCOUNTER → 2021-09-17 | Outpatient (CLI) | payer MEDICARE ==
[~2021-09-17] MED LIST changes: +APIX5TAB PO; -CONTRAST GIVEN. MC PRN; +CRESTOR40 MG PO; -IOHEXOL 300 MG/ML 100ML VIAL. IV ONE; -LISI-517 PO; +LISI10TA16 PO; +LISI5TAB15 PO; +POTA-121 PO; -POTA20TA4 PO
== END ==
LOC: LAB 10:22
PROVIDERS: ATTEND Internal Medicine Cardiovascular Disease
DX: Z01.812 Encounter for preprocedural laboratory examination (principal); Z20.822 Contact with and (suspected) exposure to COVID-19
CPT/HCPCS: U0003

== ENCOUNTER 2021-09-20 10:06 | Day surgery (SDC) | payer MEDICARE ==
[~2021-09-20] VITALS: Ht 188 cm; Wt 121.0 kg
[~2021-09-20 10:06] MED LIST changes: +HYDROmorphone 2 MG/ML INJ. IVP PRN; +IV RINGERS,LACTATED 1000ML 1,000 ML IV SCH; +MORPHINE SULFATE 2 MG/ML INJ. IVP PRN; +PROCHLORPERAZINE 10 MG/2 ML VIAL. IVP PRN; +fentaNYL PF VIAL 100 MCG/2 ML VIAL IVP PRN
[2021-09-20 10:32] VITALS: BP 131/70
[2021-09-20] MEDS ORDERED: LIDOCAINE 2% VISCOUS 15 ML SOLUTION. SWSW ONE (10:45)
[2021-09-20] MEDS ORDERED: LIDOCAINE 2% TOPICAL JELLY 30GM TUBE. TP ONE (10:45)
[2021-09-20] MEDS ORDERED: BENZOCAINE ONE 20% MUCOSAL SPRAY. MM (10:45)
--- NOTE | 2021-09-20 10:55 | EKG ---
[facility] [address] [place] [address] Test Date: 2021-09-20 Test Time: 10:53:42 Pat Name: SUNG LEE Department: Room: Gender: M Senior Quality Methods Specialist: GARRY : 1945 Requested By: JAMARCUS SANDERS Order Number: [id number] Reading MD: Dennis Bowden Measurements Intervals [place] Rate: 59 P: -85 CT: 350 QRS: -62 QRSD: 136 T: -9 QT: 526 QTc: 521 Interpretive Statements SINUS RHYTHM PROLONGED CT INTERVAL ABNORMAL LEFT AXIS DEVIATION LEFT ANTERIOR FASCICULAR BLOCK RIGHT BUNDLE BRANCH BLOCK BIFASCICULAR BLOCK Electronically Signed On 09-23-2021 8:50:36 SENIOR SPEECH PATHOLOGIST by Dennis Bowden
[2021-09-20 11:11] LABS: CALCIUM 9.5 mg/dL (8.5-10.1); GFR 49.5; MAGNESIUM 2.2 mg/dL (1.8-2.4); POTASSIUM 4.2 mmol/L (3.5-5.1)
[2021-09-20 11:12] LABS: CREATININE 1.4 mg/dL (0.7-1.3)
[2021-09-20] MEDS ORDERED: PROPOFOL 10 MG/ML (20ML) VIAL. IV ONE (12:01)
[2021-09-20 13:12] VITALS: BP 95/56
--- NOTE | 2021-09-20 13:33 | EKG ---
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
--- NOTE | 2021-09-20 17:06 | CARD ---
MR#: [id number] Date of Study: 09/20/2021 Ordering Physician: JAMARCUS SANDERS, Referring Physician: JAMARCUS SANDERS, Tech: Brayan Tian [facility] APPROVED REPORT EXAM: Transesophageal echocardiogram with color flow Doppler and Synchronized Cardioversion. INDICATION Atrial Fibrillation Cardiac Disease: CAD Surgery/Intervention Status/Post Aortic Valve Replacement: Bioprosthetic Reason For Test : Rule out cardiac source of emboli. PROCEDURE After obtaining informed consent, patient underwent transesophageal echo in the PACU. Type of Sedation : Conscious Sedation Sedation was administered by Anesthesia department.. Transesophageal probe was inserted and advanced into esophagus by Pablito Sanders MD. The SARA was performed without complications. Synchronized Cardioversion attempted: Successful Synchronized Cardioversion acheived with 200 Joules after 1 attempt(s). Rhythm following Synchronized Cardioversion: Sinus Bradycardia Throughout the procedure, the blood pressure, pulse oximetry, cardiac rhythm, and rate were monitored . The patient tolerated the procedure without adverse effects. Recovery from general sedation was uneve ntful and vital signs were stable. LEFT VENTRICLE The left ventricle is normal size. There is normal left ventricular wall thickness. The left ventricu lar systolic function is normal and the ejection fraction is within normal range. EF 55% Septal motio n suggestive of sternotomy. There is grossly normal wall motion. Tissue Doppler imaging reveals moder ate left ventricular diastolic dysfunction. No left ventricle thrombus noted on this study. There is no ventricular septal defect visualized. There is no left ventricular aneurysm. There is no mass note d in the left ventricle. RIGHT VENTRICLE The right ventricle is normal size. There is normal right ventricular wall thickness. The right ventr icular systolic function is normal. There is a pacemaker/ICD lead in the RA/RV ATRIA The left atrium is mildly dilated. The right atrium is mildly dilated. The interatrial septum is inta ct with no evidence for an atrial septal defect or patent foramen ovale as noted on 2-D or Doppler im aging. There is no thrombus noted in the left atrial appendage. AORTIC VALVE Doppler and Color Flow revealed no significant aortic regurgitation. There is mild valvular aortic st enosis. There is a bioprosthetic aortic valve prosthesis. The prosthetic aortic valve appears well se ated. MITRAL VALVE The mitral valve is thickened but opens well. There is no evidence of mitral valve prolapse. There is no mitral valve stenosis. Doppler and Color-flow revealed mild mitral regurgitation. TRICUSPID VALVE The tricuspid valve is normal in structure and function. Doppler and Color Flow revealed no tricuspid valve regurgitation noted. There is no tricuspid valve prolapse or vegetation. There is no tricuspid valve stenosis. GREAT VESSELS The aortic root is normal in size. The ascending aorta is normal in size. The IVC is normal in size a nd collapses >50% with inspiration. <Conclusion> The left ventricular systolic function is normal and the ejection fraction is within normal range. EF 55% Septal motion suggestive of sternotomy. There is grossly normal wall motion. There is a bioprosthetic aortic valve prosthesis. The prosthetic aortic valve appears well seated. There is mild valvular aortic stenosis. There is no thrombus noted in the left atrial appendage. Successful CVN to SR. Signed by : Jamarcus Sanders, Electronically Approved : 09/20/2021 17:05:45
== END 2021-09-20 13:33 | disposition home or self-care (01) ==
LOC: SURG 10:06
PROVIDERS: ATTEND Internal Medicine Cardiovascular Disease
DX: I48.0 Paroxysmal atrial fibrillation (principal); I25.10 Atherosclerotic heart disease of native coronary artery without angina pectoris; I34.0 Nonrheumatic mitral (valve) insufficiency; I10 Essential (primary) hypertension; E78.00 Pure hypercholesterolemia, unspecified; E66.9 Obesity, unspecified; Z79.82 Long term (current) use of aspirin; Z79.899 Other long term (current) drug therapy; Z72.89 Other problems related to lifestyle; Z98.890 Other specified postprocedural states; Z88.6 Allergy status to analgesic agent; Z88.8 Allergy status to other drugs, medicaments and biological substances; Z87.891 Personal history of nicotine dependence
CPT/HCPCS: 36415; 80048; 83735; 92960; 93005; 93312; 93325; J2704

== ENCOUNTER → 2021-09-28 | Outpatient (CLI) | payer MEDICARE ==
[2021-09-20 13:12] VITALS: BP 95/56
[~2021-09-28] MED LIST changes: +CONTRAST GIVEN. MC PRN; -HYDROmorphone 2 MG/ML INJ. IVP PRN; +IOHEXOL 350 MG/ML 100 ML VIAL. IV ONE; -IV RINGERS,LACTATED 1000ML 1,000 ML IV SCH; -MORPHINE SULFATE 2 MG/ML INJ. IVP PRN; -PROCHLORPERAZINE 10 MG/2 ML VIAL. IVP PRN; -fentaNYL PF VIAL 100 MCG/2 ML VIAL IVP PRN
--- NOTE | 2021-09-28 11:00 | RAD ---
EXAM: CT angiography of the chest with intravenous contrast. HISTORY: Aortic aneurysm. TECHNIQUE: Computed tomographic images of the chest were obtained following the administration of int ravenous contrast according to angiography protocol. Multiplanar reformatting was performed and three dimensional maximum intensity projection images were obtained. *One or more of the following individualized dose reduction techniques were utilized for this examina tion: 1. Automated exposure control. 2. Adjustment of the mA and/or kV according to patient size. 3. Use of iterative reconstruction technique. COMPARISON: 03/09/2018 FINDINGS: There is stable postoperative change involving the aortic valve and dilatation of the aorti c root to a caliber of 4.1 cm, allowing for differences in cardiac motion artifact compared to the pr ior exam. The remainder the thoracic aorta is normal in caliber. There is no dissection. The heart is normal in size. There is coronary artery calcification. There is calcified atherosclerotic plaque in volving the aorta and arch great vessels. There are median sternotomy changes. There is a left chest wall cardiac pacemaker with 2 leads in expected position. There is no pathologically enlarged lymph n ode. There is mild emphysema. There is no pneumothorax or pleural effusion. There is bilateral posterior d ependent and basilar atelectasis. There is no acute finding involving the upper abdomen. There is cho lelithiasis. There is degenerative change throughout the spine. There is no acute or suspicious osseo us finding. There are bridging anterior osteophytes throughout the majority of the thoracic spine. Th ere are multiple thoracic endplate Schmorl's nodes. IMPRESSION: 1. 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 2. Coronary artery calcification and aortic and aortic branch vessel atherosclerosis. 3. Pulmonary emphysema. Electronically signed by: Reta Machado MD (09/28/2021 10:58 AM) [id number]
== END ==
LOC: CT 07:41
PROVIDERS: ATTEND Internal Medicine Cardiovascular Disease
DX: J43.9 Emphysema, unspecified (principal); I77.810 Thoracic aortic ectasia; I25.10 Atherosclerotic heart disease of native coronary artery without angina pectoris; I70.0 Atherosclerosis of aorta; Z95.0 Presence of cardiac pacemaker; M47.819 Spondylosis without myelopathy or radiculopathy, site unspecified; M51.44 Schmorl's nodes, thoracic region
CPT/HCPCS: 71275; Q9967

== ENCOUNTER → 2021-12-07 | Outpatient (CLI) | payer MEDICARE ==
[~2021-12-07] MED LIST changes: -CONTRAST GIVEN. MC PRN; +DOFE125C PO; -IOHEXOL 350 MG/ML 100 ML VIAL. IV ONE; +METF500T16 PO
== END ==
LOC: LAB 10:02
PROVIDERS: ATTEND Internal Medicine Cardiovascular Disease
DX: Z01.812 Encounter for preprocedural laboratory examination (principal); Z20.822 Contact with and (suspected) exposure to COVID-19
CPT/HCPCS: U0003